=== PATIENT | female | born 1970 | race Caucasian/White ===

== ENCOUNTER → 2017-08-18 | Outpatient (CLI) | payer BC ==
[~2017-08-18] MED LIST: BCPILLS PO; ONDA4TAB7 SL
--- NOTE | 2017-08-19 07:54 | MAMMOGRAPHY REPORT ---
BILATERAL DIGITAL SCREENING MAMMOGRAM TOMOSYNTHESIS WITH CAD: 08/18/2017 CLINICAL HISTORY: Routine screening. Patient has no complaints. TECHNIQUE: Breast tomosynthesis in addition to standard 2D mammography was performed. Current study was also evaluated with a Computer Aided Detection (CAD) system. COMPARISON: Comparison is made to exams dated: 08/16/2016 mammogram, 07/21/2015 mammogram, 4 mammogram, 07/13/2013 mammogram - [facility], and 02/23/2009. BREAST COMPOSITION: The tissue of both breasts is heterogeneously dense, which may obscure small mas ses. FINDINGS: The parenchymal pattern is unchanged. No developing mass, architectural distortion or clus ter of suspicious microcalcifications is seen in either breast. IMPRESSION: ACR BI-RADS CATEGORY 2: BENIGN There is no mammographic evidence of malignancy. A 1 year screening mammogram is recommended. The pa tient will receive written notification of the results. Approximately 10% of breast cancers are not detected with mammography. A negative mammographic report should not delay biopsy if a clinically suggestive mass is present. Rosibel Coles M.D. ay/:08/18/2017 18:21:04 Salad Chef: Mayra CHOU(Vitaliy)(Tamara)(BD), [facility] letter sent: Normal 1/2 BI-RADS Code: ACR BI-RADS Category 2: Benign
== END | disposition home or self-care (01) ==
LOC: C.MAMM 14:01
PROVIDERS: ATTEND Obstetrics & Gynecology
DX: Z12.31 Encounter for screening mammogram for malignant neoplasm of breast (principal)

== ENCOUNTER → 2017-09-11 | Outpatient (CLI) | payer OTHER ==
[~2017-09-11] MED LIST changes: +GADAVIST IV PRN
--- NOTE | 2017-09-11 15:12 | DIAGNOSTIC IMAGING REPORT ---
Brain and pituitary MRI WITH AND WITHOUT CONTRAST HISTORY: TECHNIQUE: Multiplanar multisequence MRI of the brain was performed both before and after the intravenous administration of contrast. Dynamic postcontrast sequences through the pituitary gland were also performed. COMPARISON STUDY: Brain MRI 02/13/2006. FINDINGS: There are no areas of restricted diffusion to suggest acute infarction. There is a 2.4 cm retention cysts within the left maxillary sinus. The mastoid air cells are clear. The ventricles and sulci are within normal limits for age. There is no mass, hematoma, midline shift. The major vascular flow-voids at the skull base are well maintained. Postcontrast sequences show no areas of abnormal enhancement. The pituitary gland is normal in size. The pituitary stalk is normal in course and caliber. There is a 4 mm hypoenhancing nodule within the left side of the pituitary gland. This is unchanged in size. The 2 mm hypoenhancing nodule within the right side of the pituitary gland seen on the prior study is no longer visualized. IMPRESSION: 1. Stable 4 mm pituitary microadenoma. 2. No acute intracranial abnormality. Electronically signed by: Real Luna M.D. 09/11/2017 3:11 PM Dictated Date/Time: 09/11/2017 2:56 PM
== END | disposition home or self-care (01) ==
LOC: C.MRI 13:41
PROVIDERS: ATTEND Ophthalmology
DX: D35.2 Benign neoplasm of pituitary gland (principal)